=== PATIENT | female | born 1950 | race Caucasian/White ===

== ENCOUNTER 2017-10-25 17:06 | Emergency (ER) ==
[2017-10-25 17:14] VITALS: BMI 35.3
--- NOTE | 2017-10-25 18:51 | ED.PDOC ---
General ED Provider: Dr. ALLEGRA VÁZQUEZ Chief Complaint: Abdominal Pain Stated Complaint: ABDOMINAL PAIN Time Seen by Physician: 17:08 (SEEN WITH SHARDA MARADIAGA PT C/O COUGH ABDOMINAL PAIN) Mode of Arrival: Walk-In Information Source: Patient Exam Limitations: No limitations Referred to ED by: Other (HISTORY OF COLON CANCER AND COLOSTOMY HAS NOT SEEN A DOCTOR FOR 6 YEARS ) Nursing and Triage Documentation Reviewed and Agree: Yes Reviewed sepsis parameters & appropriate labs ordered?: Yes System Inflammatory Response Syndrome: Not Applicable Sepsis Protocol: For patient's 13 years and over: Temp is 96.8 and below OR 101 and greater Pulse >90 BPM Resp >20/minute Acutely Altered Mental Status Are patient's symptoms suggestive of a new infection, such as: -Pneumonia -Skin, Soft Tissue -Endocarditis -UTI -Bone, Joint Infection -Implantable Device -Acute Abdominal Infection -Wound Infection -Meningitis -Blood Stream Catheter Infection -Unknown System Inflammatory Response Syndrome: Not Applicable GI Complaint Exam - Abdominal Pain Complaint/Exam Onset: Gradual Duration: 1 DAY DIFFUSE NO GI BLEED OR DARK STOOLS COLOSTOMG BAG WNL Symptoms Are: Resolved Timing: Intermittent Initial Severity: Mild Current Severity: Mild Location of Pain: Diffuse Character: Reports: Aching Aggravating: Reports: None Alleviating: Reports: None Associated Signs and Symptoms: Reports: Cough. Denies: Diaphoresis, Fever, Chest pain, Dizziness, Back pain, Constipation, Blood in stool, Dysuria, Urinary frequency, Decreased urine output, Decreased appetite, Vaginal bleeding , Vaginal discharge, Nausea, Vomiting, Diarrhea, Sore throat, Decreased activity Related History: Reports: Similar episode AAA Risk Factors: Reports: None Cardiac Risk Factors: Reports: None Ectopic Risk Factors: Reports: None Ovarian Torsion Risk Factors: Reports: None Surgical Obstruction Risk Factors: Reports: None Related Surgical History: Reports: Bowel Resection Patient Rh Status: Unknown Abdominal Findings: Present: None (COLOSTOMY BAG NO EVIDNCE OF BLOOD) Review of Systems - Review Of Systems Constitutional: Reports: No symptoms Eyes: Reports: No symptoms Ears, Nose, Mouth, Throat: Reports: No symptoms Respiratory: Reports: Cough Cardiac: Reports: No symptoms GI: Reports: Abdominal pain : Reports: No symptoms Musculoskeletal: Reports: No symptoms Skin: Reports: No symptoms Neurological: Reports: No symptoms Endocrine: Reports: No symptoms Hematologic/Lymphatic: Reports: No symptoms All Other Systems: Reviewed and Negative Past Medical History - Past Medical History Previously Healthy: Yes Endocrine: Reports: None Cardiovascular: Reports: None Respiratory: Reports: None Hematological: Reports: None Gastrointestinal: Reports: None Genitourinary: Reports: None Neuro/Psych: Reports: None Musculoskeletal: Reports: None Cancer: Reports: Colon Last Menstrual Period: N/A - Menopause - Surgical History General Surgical History: Reports: None - Family History Family History: Reports: None - Social History Smoking Status: Never smoker Hx Substance Use: No Alcohol Screening: None - Immunizations Tetanus Shot up to Date: (unknown) Physical Exam - Physical Exam Appearance: Well-appearing, No pain distress, Well-nourished Eyes: OLI, EOMI, Conjunctiva clear ENT: Ears normal, Nose normal, Oropharynx normal Respiratory: Airway patent, Breath sounds clear, Breath sounds equal, Respirations nonlabored Cardiovascular: RRR, Pulses normal, No rub, No murmur GI/: Soft, Nontender, No masses, Bowel sounds normal, No Organomegaly Musculoskeletal: Normal strength, ROM intact, No edema, No calf tenderness Skin: Warm, Dry, Normal color Neurological: Sensation intact, Motor intact, Reflexes intact, Cranial nerves intact, Alert, Oriented Psychiatric: Affect appropriate, Mood appropriate Critical Care Note - Critical Care Note Total Time (mins): 0 Course - Course Hematology/Chemistry: 10/25/17 18:44 Orders, Labs, Meds: Lab Review 10/25/17 18:44 WBC 7.92 RBC 4.56 Hgb 14.8 Hct 42.0 MCV 92.1 MCH 32.5 H MCHC 35.2 RDW Coeff of Virgil 13.0 Plt Count 268 Immature Gran % (Auto) 0.3 Neut % (Auto) 78.1 Lymph % (Auto) 13.9 Howard % (Auto) 7.4 Eos % (Auto) 0.0 Baso % (Auto) 0.3 Immature Gran # (Auto) 0.0 Neut # 6.2 Lymph # 1.1 Howard # 0.6 Eos # 0.0 Baso # 0.0 Orders Category Date Time Status AMYLASE Stat LAB 10/25/17 18:44 Received CBC W/ AUTO DIFF Stat LAB 10/25/17 18:44 Completed COMPREHENSIVE METABOLIC PANEL Stat LAB 10/25/17 18:44 Received LIPASE Stat LAB 10/25/17 18:44 Received URINALYSIS C & S IF INDICATED Stat LAB 10/25/17 18:[address] ABDOMEN/PELVIS WO CONTRAST Stat RADS 10/25/17 18:[address] CHEST W/O CONTRAST Stat RADS 10/25/17 18:53 Ordered Vital Signs: Temp Pulse Resp BP Pulse Ox 10/25/17 17:08 99.8 F H 122 H 19 119/89 93 L Departure - Departure Time of Disposition: 20:00 Disposition: HOME SELF-CARE Discharge Problem: Abdominal pain Instructions: Abdominal Pain (ED) Condition: Good Pt referred to PMD for follow-up: Yes Additional Instructions: Please call your Family Physician as soon as possible to schedule a follow-up appointment.you have a history of colon cancer please make sure you are seen by [facility] Allergies/Adverse Reactions: Allergies No Known Allergies Allergy (Unverified 10/25/17 17:07) Home Medications: Ambulatory Orders 1 [No Reported Medications] 10/25/17
--- NOTE | 2017-10-25 19:39 | CT ---
EXAM: CT abdomen pelvis without intravenous contrast 10/25/2017. Sagittal and coronal reformatted i mages obtained HISTORY: Abdominal pain COMPARISON: 08/25/2011 FINDINGS: Nonspecific reticulonodular infiltrate in the right lower lobe. This may represent pneumo leah. Moderate sized hiatal hernia. The liver shows no acute abnormality. Sludge is present with the gallbladder. The adrenal glands and kidneys show no acute abnormality. Bilateral peripelvic cysts. No hydronephr osis. The spleen and pancreas show no acute abnormality. Duodenal diverticulum incidentally noted. Left lower quadrant ostomy is present. There is a right lower quadrant ventral hernia. The abdominal wall defect is located immediately to the right of the midline. This contains multiple loops of small bowel. Small bowel within the herni a sac is upper normal in caliber. Early or partial obstruction cannot totally be excluded. Edema is present within the hernia sac as well as within the anterior abdominal mesentery. Multilobular uterus with multiple calcifications. This is most compatible with leiomyomatous uterus. IMPRESSION: 1. Reticulonodular infiltrates of the right lower lobe may represent pneumonia. 2. Moderate sized hiatal hernia 3. Technically limited examination due to the lack of intravenous contrast 4. Sludge in the gallbladder 5. Right lower quadrant ventral hernia contains multiple loops of small bowel. These appear upper n ormal in caliber. There is edema within the hernia sac as well as the anterior abdominal mesentery. Early or partial obstruction not totally excluded. 6. Left lower quadrant colostomy. 7. The previously described sclerotic lesions of the right ilium and left acetabulum appear unchange d. This could represent benign bone islands. Other etiologies less likely.
[2017-10-25] MEDS ORDERED: MORPHINE 2 MG/ML SYRINGE IVP PRN (19:45)
[2017-10-25] MEDS ORDERED: ZOFRAN 4 MG/2 ML IVP STA (19:45)
[2017-10-25] MEDS ORDERED: SODIUM CHLORIDE 1,000 ML IV STA (19:45)
--- NOTE | 2017-10-25 20:11 | CT ---
EXAM: CT chest without intravenous contrast 10/25/2017. Sagittal and coronal reformatted images obt ained HISTORY: Cough COMPARISON: None. FINDINGS: The heart size appears within normal limits. No pericardial effusion. Moderate sized hiatal hernia. Left chest port well positioned. Reticulonodular infiltrates of the right upper and right lower lobe may represent a nodular interstit ial pneumonia. Atelectasis of the right upper lobe The left lung appears well aerated. There is no pleural effusion or pneumothorax. IMPRESSION: 1. Reticulonodular infiltrate in the right upper and right lower lobe. This likely represents nodula r interstitial pneumonia. 2. Atelectasis 3. Moderate sized hiatal hernia. 4. Left chest port well positioned.
[2017-10-25] MEDS ORDERED: MORPHINE 2 MG/ML SYRINGE ONE (20:18)
[2017-10-25 20:51] VITALS: BP 157/94; TEMP 97.8
== END 2017-10-25 21:00 | disposition home or self-care (01) ==
LOC: ED 17:06
DX: R10.84 Generalized abdominal pain (principal); R05 Cough; Z85.038 Personal history of other malignant neoplasm of large intestine; Z93.3 Colostomy status; J18.9 Pneumonia, unspecified organism; K46.9 Unspecified abdominal hernia without obstruction or gangrene
CPT/HCPCS: 36415; 80053; 81001; 82150; 83690; 85025; 87086; 87186; 96361; 96374; 96375; 99285

== ENCOUNTER 2017-12-06 00:15 | Emergency (ER) ==
[2017-12-06] MEDS ORDERED: ZOFRAN 4 MG/2 ML IVP STA (00:20)
[2017-12-06] MEDS ORDERED: SODIUM CHLORIDE 1,000 ML IV STA (00:20)
[2017-12-06] MEDS ORDERED: MORPHINE 4 MG/ML VIAL IVP STA (00:24)
[2017-12-06] MEDS ORDERED: ZOFRAN 4 MG/2 ML ONE (00:25)
[2017-12-06 00:27] VITALS: BP 120/94; TEMP 98.9; BMI 30.8
--- NOTE | 2017-12-06 00:27 | ED.PDOC ---
General ED Provider: Dr. JEAN VARGAS Chief Complaint: Nausea/Vomiting Stated Complaint: Patient states she has a history of colon resection with colostomy on the left lower abdomen. She states she has hernia and is suppose to be repaired and have colosomy reversal at [facility] soon. Starting 3 day ago she started having mid epigastric pain with associated nausea and vomiting. Has not been able to drink much since. State that the pain is severe. continus to have normal stool in the colostomy bag. Time Seen by Physician: 00:20 Mode of Arrival: Walk-In Exam Limitations: No limitations Nursing and Triage Documentation Reviewed and Agree: Yes Reviewed sepsis parameters & appropriate labs ordered?: No System Inflammatory Response Syndrome: Not Applicable Sepsis Protocol: For patient's 13 years and over: Temp is 96.8 and below OR 101 and greater Pulse >90 BPM Resp >20/minute Acutely Altered Mental Status Are patient's symptoms suggestive of a new infection, such as: -Pneumonia -Skin, Soft Tissue -Endocarditis -UTI -Bone, Joint Infection -Implantable Device -Acute Abdominal Infection -Wound Infection -Meningitis -Blood Stream Catheter Infection -Unknown System Inflammatory Response Syndrome: Not Applicable Review of Systems - Review Of Systems Constitutional: Reports: No symptoms Eyes: Reports: No symptoms Ears, Nose, Mouth, Throat: Reports: No symptoms Respiratory: Reports: No symptoms Cardiac: Reports: No symptoms GI: Reports: Abdominal pain, Poor appetite, Poor fluid intake : Reports: No symptoms Musculoskeletal: Reports: No symptoms Skin: Reports: No symptoms Neurological: Reports: No symptoms Endocrine: Reports: No symptoms Hematologic/Lymphatic: Reports: No symptoms All Other Systems: Reviewed and Negative Past Medical History - Past Medical History Previously Healthy: Yes Endocrine: Reports: None Cardiovascular: Reports: None Respiratory: Reports: None Hematological: Reports: None Gastrointestinal: Reports: None Genitourinary: Reports: None Neuro/Psych: Reports: None Musculoskeletal: Reports: Arthritis Cancer: Reports: Colon - Surgical History General Surgical History: Reports: Other (colostomy 6 years ago ) - Family History Family History: Reports: None - Social History Smoking Status: Never smoker Hx Substance Use: No Alcohol Screening: None Physical Exam - Physical Exam Appearance: Ill-appearing, Obese Ill-appearing: Moderate Pain Distress: Severe Eyes: OLI, EOMI, Conjunctiva clear ENT: Nose normal, Oropharynx normal Neck: Supple Respiratory: Airway patent, Breath sounds clear, Breath sounds equal, Respirations nonlabored Cardiovascular: Tachycardia GI/: Soft, Bowel sounds normal (colostomy bag noted on the left lower quadrant with normal stool and no bleeding. ), Tender Musculoskeletal: Normal strength, ROM intact, No edema, No calf tenderness Skin: Warm, Dry, Normal color Neurological: Sensation intact, Alert, Oriented Psychiatric: Anxious Interpretation - Radiology Interpretation Radiology Interpretation By: Radiologist Radiology Results: Positive Exam Interpreted: CT Scan (acute pancreatitis ) Physician Notification - Case Discussed Physician Notified: Dr Mccartney Time of Notification: 02:11 (Attempt to Transfer to [facility] is [facility] is flying ) Physician Notified: Dr Mccormick Time of Notification: 02:40 (Send patient to the ER for her to evaluate. ) Critical Care Note - Critical Care Note Total Time (mins): 35 Course - Course Hematology/Chemistry: 12/06/17 00:30 12/06/17 00:30 Orders, Labs, Meds: Lab Review 12/06/17 12/06/17 12/06/17 00:30 00:30 01:10 WBC 29.45 H RBC 4.87 Hgb 15.7 Hct 43.4 MCV 89.1 MCH 32.2 H MCHC 36.2 H RDW Coeff of Virgil 12.8 Plt Count 351 Immature Gran % (Auto) 1.1 Neut % (Auto) 91.4 Lymph % (Auto) 4.1 L Rapides % (Auto) 3.2 Eos % (Auto) 0.0 Baso % (Auto) 0.2 Immature Gran # (Auto) 0.3 Neut # 26.9 H Lymph # 1.2 Rapides # 0.9 Eos # 0.0 Baso # 0.1 Sodium 137 Potassium 2.9 L Chloride 98 Carbon Dioxide 23 Anion Gap 18.9 BUN 35 H Creatinine 1.30 Estimated GFR (MDRD) 41.00 BUN/Creatinine Ratio 26.92 Glucose 168 H Lactic Acid 14.1 Calcium 6.8 L Total Bilirubin 1.4 H AST 18 ALT 46 Alkaline Phosphatase 121 Total Protein 6.7 Albumin 3.3 L Globulin 3.4 Albumin/Globulin Ratio 0.97 Amylase 221 H Lipase 111 H Procalcitonin 12/06/17 01:10 WBC RBC Hgb Hct MCV MCH MCHC RDW Coeff of Virgil Plt Count Immature Gran % (Auto) Neut % (Auto) Lymph % (Auto) Rapides % (Auto) Eos % (Auto) Baso % (Auto) Immature Gran # (Auto) Neut # Lymph # Rapides # Eos # Baso # Sodium Potassium Chloride Carbon Dioxide Anion Gap BUN Creatinine Estimated GFR (MDRD) BUN/Creatinine Ratio Glucose Lactic Acid Calcium Total Bilirubin AST ALT Alkaline Phosphatase Total Protein Albumin Globulin Albumin/Globulin Ratio Amylase Lipase Procalcitonin 1.05 Orders Category Date Time Status ED IV/MEDIPORT/POWERPORT .ONCE EMERGENCY 12/06/17 00:20 Active AMYLASE Stat LAB 12/06/17 00:30 Completed BLOOD CULTURE (ED ONLY) Stat LAB 12/06/17 01:10 Results CBC W/ AUTO DIFF Stat LAB 12/06/17 00:30 Completed COMPREHENSIVE METABOLIC PANEL Stat LAB 12/06/17 00:30 Completed LACTIC ACID Stat LAB 12/06/17 01:10 Completed LIPASE Stat LAB 12/06/17 00:30 Completed PROCALCITONIN Stat LAB 12/06/17 01:10 Completed 0.9 % Sodium Chloride [Saline Flush] MEDS 12/06/17 00:20 Discontinued 1 syr IVF PRN PRN Calcium Gluconate Inj [Calcium Gluconate 10%] MEDS 12/06/17 01:10 Discontinued 1,000 mg .ROUTE .STK-MED ONE Calcium Gluconate Inj [Calcium Gluconate 10%] MEDS 12/06/17 01:22 Discontinued 1,000 mg IVP ONCE STA Hydromorphone HCl [Dilaudid 1 mg/ml Syringe] MEDS 12/06/17 02:08 Discontinued 1 mg .ROUTE .STK-MED ONE Hydromorphone HCl/Pf [Dilaudid 2 mg/ml Syringe] MEDS 12/06/17 02:07 Discontinued 1 mg IM ONCE STA Morphine Sulfate [Morphine 4 mg/ml Vial] MEDS 12/06/17 00:24 Discontinued 4 mg IVP ONCE STA Ondansetron HCl/Pf [Zofran 4 mg/2 ml] MEDS 12/06/17 00:25 Discontinued 4 mg .ROUTE .STK-MED ONE Ondansetron HCl/Pf [Zofran 4 mg/2 ml] MEDS 12/06/17 00:20 Discontinued 4 mg IVP ONCE STA Piperacillin Sodium/Tazobactam [Zosyn 3.375 gm] 3.375 MEDS 12/06/17 01:03 Discontinued gm 0.9 % Sodium Chloride [Sodium Chloride] 50 ml IV ONCE Potassium Chloride [Potassium Chloride Premix Run] 10 MEDS 12/06/17 01:24 Discontinued meq Premix 100 ml Water 1 bag IV ONCE Potassium Chloride [Potassium Chloride Premix Run] 100 MEDS 12/06/17 02:08 Discontinued ml IV .STK-MED Sodium Chloride 0.9% [Sodium Chloride] 1,000 ml MEDS 12/06/17 00:[address] ABD/PEL WO RENAL STONE PROT Stat RADS 12/06/17 00:20 Completed Medications Discontinued Medications Generic Name Dose Route Start Last Admin Trade Name Freq PRN Reason Stop Dose Admin Calcium Gluconate 1,000 mg 12/06/17 01:22 12/06/17 01:49 Calcium Gluconate 10% IVP 12/06/17 01:23 Not Given ONCE STA Hydromorphone HCl 1 mg 12/06/17 02:07 12/06/17 02:25 Dilaudid 2 Mg/Ml Syringe IM 12/06/17 02:08 1 mg ONCE STA Administration Sodium Chloride 1,000 mls @ 1,000 mls/hr 12/06/17 00:20 12/06/17 00:36 Sodium Chloride IV 12/06/17 01:19 1,000 mls/hr BOLUS STA Administration Piperacillin Sod/Tazobactam 50 mls @ 50 mls/hr 12/06/17 01:03 12/06/17 01:23 Sod 3.375 gm/ Sodium Chloride IV 12/06/17 02:02 50 mls/hr ONCE STA Administration Potassium Chloride 10 meq/ 100 mls @ 100 mls/hr 12/06/17 01:24 12/06/17 02:25 Sterile Water IV 12/06/17 02:23 100 mls/hr ONCE STA Administration Morphine Sulfate 4 mg 12/06/17 00:24 12/06/17 00:41 Morphine 4 Mg/Ml Vial IVP 12/06/17 00:25 4 mg ONCE STA Administration Ondansetron HCl 4 mg 12/06/17 00:20 12/06/17 00:36 Zofran 4 Mg/2 Ml IVP 12/06/17 00:21 4 mg ONCE STA Administration Sodium Chloride 1 syr 12/06/17 00:20 Saline Flush IVF PRN PRN To flush IV Vital Signs: Temp Pulse Resp BP Pulse Ox 12/06/17 00:18 98.9 F 133 H 22 120/94 H 96 Departure - Departure Time of Disposition: 01:42 Disposition: ADMITTED INPATIENT Discharge Problem: Hypocalcemia, Hypokalemia Acute pancreatitis Qualifiers: Pancreatitis type: unspecified pancreatitis type Acute pancreatitis complication: unspecified Qualified Code(s): K85.90 - Acute pancreatitis without necrosis or infection, unspecified Condition: Fair Pt referred to PMD for follow-up: No (Admitted ) IPMP verified?: No Allergies/Adverse Reactions: Allergies No Known Allergies Allergy (Verified 12/06/17 00:27) Home Medications: Ambulatory Orders 1 [No Reported Medications] 10/25/17 Disposition Discussed With: Patient
[2017-12-06] MEDS ORDERED: CALCIUM CHLORIDE 10% IVP STA (01:00)
[2017-12-06] MEDS ORDERED: ZOSYN 3.375 GM 3.375 GM in SODIUM CHLORIDE 50 ML IV STA (01:03)
[2017-12-06] MEDS ORDERED: CALCIUM GLUCONATE 10% ONE (01:10)
[2017-12-06] MEDS ORDERED: CALCIUM GLUCONATE 10% IVP STA (01:22)
[2017-12-06] MEDS ORDERED: POTASSIUM CHLORIDE PREMIX RUN 10 MEQ in PREMIX 100 ML WATER 1 BAG IV STA (01:24)
--- NOTE | 2017-12-06 01:30 | CT ---
EXAM: CT scan abdomen pelvis without contrast HISTORY: Abdominal pain vomiting COMPARISON: CT scan abdomen pelvis 10/25/2017 FINDINGS: Contiguous axial images obtained through the abdomen pelvis without contrast utilizing 3-m m collimation. Sagittal and coronal reconstructions were imaged and reviewed.. The visualized lung bases are clear. Gallstone is seen within the gallbladder... There is mild fatty infiltration in th e liver.. Moderate pancreatitis is seen involving the head and body of the pancreas with extensive s urrounding inflammatory changes and fluid extending along the right and left retro mesenteric region anterior right greater than left. There is a duodenal diverticulum. There is mild fatty infiltrati on of the liver. The spleen is normal. There is stable thickening of the adrenal glands.. Redemons trated are large calcified uterine fibroids. There is diverticulosis without diverticulitis Redemon strated is a right lower quadrant hernia containing non dilated small bowel loops with mild mesenteri c stranding.. Also redemonstrated is a left lower quadrant ostomy. IMPRESSION: Findings compatible with acute pancreatitis. ASVD without aneurysm. Diverticulosis without diverticulitis.. Cholelithiasis. . Right lower quadrant ventral hernia
[2017-12-06] MEDS ORDERED: SODIUM CHLORIDE 1,000 ML IV ONE (01:49)
[2017-12-06] MEDS ORDERED: DILAUDID 2 MG/ML SYRINGE IM STA (02:07)
[2017-12-06] MEDS ORDERED: POTASSIUM CHLORIDE PREMIX RUN 100 ML IV ONE (02:08)
[2017-12-06] MEDS ORDERED: DILAUDID 1 MG/ML SYRINGE ONE (02:08)
== END 2017-12-06 03:15 | disposition other institution (70) ==
LOC: ED 00:15
DX: K85.90 Acute pancreatitis without necrosis or infection, unspecified (principal); E87.6 Hypokalemia; E83.51 Hypocalcemia; Z93.3 Colostomy status; Z87.19 Personal history of other diseases of the digestive system; Z98.890 Other specified postprocedural states
CPT/HCPCS: 36415; 74176; 80053; 82150; 83605; 83690; 84145; 85025; 87040; 96361; 96365; 96366; 96367; 96372; 96375; 99285

== ENCOUNTER 2018-02-15 13:29 | Outpatient (CLI) ==
--- NOTE | 2018-02-16 10:06 | MAMMO ---
EXAM: Bilateral digital screening mammogram (2-D and 3-D) History: Baseline screening Findings: MLO and CC views of bilateral breasts demonstrate scattered fibroglandular breast parenchy ma. CAD was reviewed by the radiologist. Tomosynthesis was performed. Benign appearing bilateral b reast calcifications. There are no dominant masses, no suspicious microcalcifications and no archite ctural distortions Impression: Benign mammogram. Recommend followup routine screening mammography in 1 year. BIRADS 2
== END 2018-02-15 13:30 | disposition home or self-care (01) ==
LOC: RAD 13:29
PROVIDERS: ATTEND Family Medicine
DX: Z12.31 Encounter for screening mammogram for malignant neoplasm of breast (principal)
CPT/HCPCS: 77067